=== PATIENT | female | born 1935 | race Native Hawaiian/Other Pacific Islander ===

== ENCOUNTER 2016-02-16 09:39 | Inpatient (IN) | payer OTHER ==
[~2016-02-16 09:39] MED LIST: ALPR0.2566 PO; AMBIEN5 MG PO; AMLO5TAB PO; EZET10TA13 PO; LEVO0.1224 PO; METO50TA27 PO; MOBIC7.5 M1 PO; NAMENDA5 MG PO; OMEPRAZOLE20 M2 PO; PAROXETINE30 MG PO; POTASSIUM CHLO10 ME2 PO; RANI150T78 PO; SIMV40TA57 PO; VALS160T PO
== END 2016-03-18 08:00 | disposition still patient (30) ==
LOC: PAVB 09:39
PROVIDERS: ADMIT Internal Medicine
DX: Z51.89 Encounter for other specified aftercare (principal)

== ENCOUNTER 2016-03-18 09:00 | Inpatient (IN) | payer OTHER | END 2016-04-18 10:18 | disposition still patient (30) | LOC: PAVB 09:00 | PROVIDERS: ADMIT Internal Medicine | DX: Z51.89 Encounter for other specified aftercare (principal) ==

== ENCOUNTER 2016-03-22 10:13 | Outpatient (CLI) | payer OTHER | END 2016-03-22 11:13 | disposition home or self-care (01) | LOC: MAMMO 10:13 | DX: Z12.31 Encounter for screening mammogram for malignant neoplasm of breast (principal) | CPT/HCPCS: G0202-TC ==

== ENCOUNTER 2016-04-18 10:49 | Inpatient (IN) | payer OTHER | END 2016-05-16 09:48 | disposition still patient (30) | LOC: PAVB 10:49 | PROVIDERS: ADMIT Internal Medicine | DX: Z51.89 Encounter for other specified aftercare (principal) ==

== ENCOUNTER 2016-05-16 11:02 | Inpatient (IN) | payer OTHER | END 2016-06-16 08:08 | disposition still patient (30) | LOC: PAVB 11:02 | PROVIDERS: ADMIT Internal Medicine | DX: Z51.89 Encounter for other specified aftercare (principal) ==

== ENCOUNTER 2016-05-30 21:10 | Outpatient (CLI) | payer OTHER ==
[2016-05-30 22:17] LABS: PLATELET COUNT 170 K/uL (152-353)
[2016-05-30 22:20] LABS: POTASSIUM 4.7 mmol/L (3.6-5.2)
== END 2016-05-30 22:00 | disposition home or self-care (01) ==
LOC: LAB 21:10
PROVIDERS: Internal Medicine
DX: R41.82 Altered mental status, unspecified (principal)
CPT/HCPCS: 80048; 81000; 85027; 87077; 87086; 87088; 87186

== ENCOUNTER 2016-06-16 09:34 | Inpatient (IN) | payer OTHER | END 2016-07-16 09:14 | disposition still patient (30) | LOC: PAVB 09:34 | PROVIDERS: ADMIT Internal Medicine | DX: Z51.89 Encounter for other specified aftercare (principal) ==

== ENCOUNTER 2016-06-20 06:16 | Outpatient (CLI) | payer OTHER ==
[2016-06-20 07:03] LABS: PLATELET COUNT 124 K/uL (152-353)
[2016-06-20 07:29] LABS: POTASSIUM 4.3 mmol/L (3.6-5.2)
== END 2016-06-20 07:16 | disposition home or self-care (01) ==
LOC: LAB 06:16
PROVIDERS: Internal Medicine
DX: I10 Essential (primary) hypertension (principal); E78.4 Other hyperlipidemia; E55.9 Vitamin D deficiency, unspecified
CPT/HCPCS: 80053; 82306; 84443; 85027

== ENCOUNTER 2016-07-04 05:28 | Outpatient (CLI) | payer OTHER | END 2016-07-04 19:02 | disposition home or self-care (01) | LOC: LAB 05:28 | DX: Z16.24 Resistance to multiple antibiotics (principal) | CPT/HCPCS: 87081 ==

== ENCOUNTER 2016-07-16 10:13 | Inpatient (IN) | payer OTHER | END 2016-08-16 09:37 | disposition still patient (30) | LOC: PAVB 10:13 | PROVIDERS: ADMIT Internal Medicine | DX: Z51.89 Encounter for other specified aftercare (principal) ==

== ENCOUNTER 2016-07-31 03:35 | Outpatient (CLI) | payer OTHER | END 2016-07-31 19:42 | disposition home or self-care (01) | LOC: LAB 03:35 | DX: N39.0 Urinary tract infection, site not specified (principal) | CPT/HCPCS: 81000 ==

== ENCOUNTER 2016-08-16 10:06 | Inpatient (IN) | payer OTHER | END 2016-09-15 15:23 | disposition still patient (30) | LOC: PAVB 10:06 | PROVIDERS: ADMIT Internal Medicine | DX: Z51.89 Encounter for other specified aftercare (principal) ==

== ENCOUNTER 2016-09-15 15:48 | Inpatient (IN) | payer OTHER | END 2016-10-16 09:45 | disposition still patient (30) | LOC: PAVB 15:48 | PROVIDERS: ADMIT Internal Medicine | DX: Z51.89 Encounter for other specified aftercare (principal) ==

== ENCOUNTER 2016-10-16 11:05 | Inpatient (IN) | payer OTHER | END 2016-11-16 08:43 | disposition still patient (30) | LOC: PAVB 11:05 | PROVIDERS: ADMIT Internal Medicine | DX: Z51.89 Encounter for other specified aftercare (principal) ==

== ENCOUNTER 2016-10-17 14:00 | Outpatient (CLI) | payer OTHER | END 2016-10-17 19:37 | disposition home or self-care (01) | LOC: LAB 14:00 | DX: L03.818 Cellulitis of other sites (principal) | CPT/HCPCS: 87070; 87205 ==

== ENCOUNTER 2016-11-16 09:22 | Inpatient (IN) | payer OTHER | END 2016-12-16 10:41 | disposition still patient (30) | LOC: PAVB 09:22 | PROVIDERS: ADMIT Internal Medicine | DX: Z51.89 Encounter for other specified aftercare (principal) ==

== ENCOUNTER 2016-12-09 18:03 | Outpatient (CLI) | payer OTHER | END 2016-12-09 19:05 | disposition home or self-care (01) | LOC: LAB 18:03 | DX: R35.0 Frequency of micturition (principal) | CPT/HCPCS: 81000 ==

== ENCOUNTER 2016-12-16 10:49 | Inpatient (IN) | payer OTHER | END 2017-01-16 12:58 | disposition still patient (30) | LOC: PAVB 10:49 | PROVIDERS: ADMIT Internal Medicine ==

== ENCOUNTER 2016-12-18 06:53 | Outpatient (CLI) | payer OTHER ==
[2016-12-18 07:55] LABS: PLATELET COUNT 147 K/uL (152-353)
[2016-12-18 08:40] LABS: POTASSIUM 4.4 mmol/L (3.6-5.2)
== END 2016-12-18 07:55 | disposition home or self-care (01) ==
LOC: LAB 06:53
PROVIDERS: Internal Medicine
DX: I10 Essential (primary) hypertension (principal); E55.9 Vitamin D deficiency, unspecified
CPT/HCPCS: 36415; 80053; 80061; 82306; 84443; 85027

== ENCOUNTER 2017-01-16 13:59 | Inpatient (IN) | payer OTHER | END 2017-02-15 09:21 | disposition still patient (30) | LOC: PAVB 13:59 | PROVIDERS: ADMIT Internal Medicine ==

== ENCOUNTER 2017-01-18 06:02 | Outpatient (CLI) | payer OTHER | END 2017-01-18 07:05 | disposition home or self-care (01) | LOC: LAB 06:02 | DX: E03.8 Other specified hypothyroidism (principal); Z51.81 Encounter for therapeutic drug level monitoring | CPT/HCPCS: 84443 ==

== ENCOUNTER 2017-02-15 09:49 | Inpatient (IN) | payer OTHER ==
[2017-03-01] MEDS ORDERED: ALEN70TA19 PO (19:57)
[2017-03-01] MEDS ORDERED: CETI10TA PO (19:58)
[2017-03-01] MEDS ORDERED: BISA10SU8 RE (19:58)
[2017-03-01] MEDS ORDERED: CLOBETASOL0.051 EX (20:03)
[2017-03-01] MEDS ORDERED: DIVA500T2 PO (20:04)
[2017-03-01] MEDS ORDERED: EQ STOOL SOFTE100 MG PO (20:06)
[2017-03-01] MEDS ORDERED: EZET10TA13 OR (20:07)
[2017-03-01] MEDS ORDERED: ASPI325T40 PO (20:07)
[2017-03-01] MEDS ORDERED: FLONASE AL50 MCG/AC1 (20:08)
[2017-03-01] MEDS ORDERED: GABA100C2 PO (20:10)
[2017-03-01] MEDS ORDERED: GABA300C2 PO (20:11)
[2017-03-01] MEDS ORDERED: LEVO-T88 MCG PO (20:12)
[2017-03-01] MEDS ORDERED: ALUMSUS6 PO (20:20)
[2017-03-01] MEDS ORDERED: METO50TA27 PO (20:22)
[2017-03-01] MEDS ORDERED: MAGNSUS68 PO (20:30)
[2017-03-01] MEDS ORDERED: MONT10TA PO (20:31)
[2017-03-01] MEDS ORDERED: PRILOSEC DR (20:32)
[2017-03-01] MEDS ORDERED: KLOR-CON M2020 MEQ OR (20:33)
[2017-03-01] MEDS ORDERED: ROBITUSSIN DM PO (20:36)
[2017-03-01] MEDS ORDERED: SENNA PLUS (20:37)
[2017-03-01] MEDS ORDERED: TYLENOL325 MG OR (20:38)
[2017-03-01] MEDS ORDERED: DIOVAN320 MG PO (20:39)
[2017-03-01] MEDS ORDERED: VITAMIN D PO (20:41)
== END 2017-03-18 09:32 | disposition still patient (30) ==
LOC: PAVB 09:49
PROVIDERS: ADMIT Internal Medicine

== ENCOUNTER 2017-02-17 11:16 | Outpatient (CLI) | payer OTHER | END 2017-02-17 12:20 | disposition home or self-care (01) | LOC: LAB 11:16 | DX: R82.99 Other abnormal findings in urine (principal) | CPT/HCPCS: 81000; 87077; 87086; 87088; 87186 ==

== ENCOUNTER 2017-02-18 06:12 | Outpatient (CLI) | payer OTHER | END 2017-02-18 07:15 | disposition home or self-care (01) | LOC: LAB 06:12 | DX: E03.8 Other specified hypothyroidism (principal) | CPT/HCPCS: 36415; 84443 ==

== ENCOUNTER 2017-03-18 10:25 | Inpatient (IN) | payer OTHER ==
[~2017-03-18 10:25] MED LIST changes: +ALEN70TA19 PO; +ALUMSUS6 PO; +ASPI325T40 PO; +BISA10SU8 RE; +CETI10TA PO; +CLOBETASOL0.051 EX; +DIOVAN320 MG PO; +DIVA500T2 PO; +EQ STOOL SOFTE100 MG PO; +EZET10TA13 OR; +FLONASE AL50 MCG/AC1; +GABA100C2 PO; +GABA300C2 PO; +KLOR-CON M2020 MEQ OR; +LEVO-T88 MCG PO; +MAGNSUS68 PO; +MONT10TA PO; +PRILOSEC DR; +ROBITUSSIN DM PO; +SENNA PLUS; +TYLENOL325 MG OR; +VITAMIN D PO
== END 2017-04-18 09:56 | disposition still patient (30) ==
LOC: PAVB 10:25
PROVIDERS: ADMIT Internal Medicine

== ENCOUNTER 2017-03-31 20:19 | Outpatient (CLI) | payer OTHER | END 2017-03-31 23:13 | disposition home or self-care (01) | LOC: LAB 20:19 | DX: R50.9 Fever, unspecified (principal) | CPT/HCPCS: 87804 ==

== ENCOUNTER 2017-04-05 10:36 | Outpatient (CLI) | payer OTHER | END 2017-04-05 19:29 | disposition home or self-care (01) | LOC: LAB 10:36 | DX: R41.82 Altered mental status, unspecified (principal); R50.9 Fever, unspecified | CPT/HCPCS: 87804 ==

== ENCOUNTER → 2017-04-10 03:50 | Outpatient (CLI) | payer OTHER ==
[~2017-04-10 03:50] MED LIST changes: +CALCIUM CARBON600 M3 PO; +CULTURELL3; +MEGACE ES PO; +ROBITUSSIN PEAK COL3 OR
== END | disposition home or self-care (01) ==
LOC: LAB 03:50
DX: R41.82 Altered mental status, unspecified (principal)
CPT/HCPCS: 81000; 87077; 87086; 87088; 87186

== ENCOUNTER 2017-04-18 10:46 | Inpatient (IN) | payer OTHER ==
[~2017-04-18 10:46] MED LIST changes: -CALCIUM CARBON600 M3 PO; -CULTURELL3; -MEGACE ES PO; -ROBITUSSIN PEAK COL3 OR
[2017-05-06] MEDS ORDERED: CULTURELL3 (10:41)
[2017-05-06] MEDS ORDERED: EZET10TA13 OR (10:43)
[2017-05-06] MEDS ORDERED: ROBITUSSIN PEAK COL3 OR (10:48)
[2017-05-14] MEDS ORDERED: CALCIUM CARBON600 M3 PO (03:02)
[2017-05-14] MEDS ORDERED: MEGACE ES PO (03:24)
== END 2017-05-16 09:20 | disposition still patient (30) ==
LOC: PAVB 10:46
PROVIDERS: ADMIT Internal Medicine
DX: J18.9 Pneumonia, unspecified organism (principal); R53.1 Weakness; R26.89 Other abnormalities of gait and mobility; R13.12 Dysphagia, oropharyngeal phase; J30.9 Allergic rhinitis, unspecified; G20 Parkinson's disease; M51.34 Other intervertebral disc degeneration, thoracic region; E55.9 Vitamin D deficiency, unspecified; M89.9 Disorder of bone, unspecified; Z95.0 Presence of cardiac pacemaker

== ENCOUNTER 2017-05-05 16:31 | Inpatient (IN) | payer OTHER ==
[~2017-05-05] VITALS: Ht 162.6 cm; Wt 61.3 kg
[2017-05-05 16:41] LABS: PLATELET COUNT 202 K/uL (152-353)
[2017-05-05 17:06] LABS: POTASSIUM 4.9 mmol/L (3.6-5.2)
[2017-05-06 01:42] VITALS: BP 138/75; TEMP 97.4; Ht 162.6 cm; Wt 61.3 kg
[2017-05-06 04:00] VITALS: BP 159/74; TEMP 97.4
--- NOTE | 2017-05-06 05:27 | NUR ---
PT'S DAUGHTER HAS BEEN AT BED SIDE ALL NIGHT. PT DOES NOT APPEAR TO BE IN DIRE DISTRESS. PT SEEMS TO BE MORE ALERT THAN SHE WAS WHEN SHE CAME IN LAST NIGHT. WILL CONTINUE TO MONITOR PT FOR ANY CHANGES. BEDRAILS UP X2 CALL LIGHT WITHIN REACH.
[2017-05-06 08:37] VITALS: BP 186/61; TEMP 97.5
[2017-05-06] MEDS ORDERED: CULTURELL3 (10:41)
[2017-05-06] MEDS ORDERED: EZET10TA13 OR (10:43)
[2017-05-06] MEDS ORDERED: ROBITUSSIN PEAK COL3 OR (10:48)
[2017-05-06 12:00] VITALS: BP 165/63; TEMP 97
[2017-05-06 16:00] VITALS: BP 151/67; TEMP 97.9
[2017-05-06 20:00] VITALS: BP 152/61; TEMP 97.6
[2017-05-07] VITALS: BP 156/61; TEMP 98.2
[2017-05-07 04:00] VITALS: BP 158/59; TEMP 98.1
[2017-05-07 08:00] VITALS: BP 185/74; TEMP 97.8
[2017-05-07 12:29] VITALS: BP 129/62; TEMP 97.6
[2017-05-07 16:00] VITALS: BP 153/63; TEMP 97.1
[2017-05-07 20:00] VITALS: BP 195/71; TEMP 98.2
[2017-05-08] VITALS: BP 170/78; TEMP 97.6
[2017-05-08 04:00] VITALS: BP 138/60; TEMP 98.5
[2017-05-08 06:11] LABS: PLATELET COUNT 178 K/uL (152-353)
[2017-05-08 06:30] LABS: POTASSIUM 3.5 mmol/L (3.6-5.2)
[2017-05-08 08:00] VITALS: BP 147/72; TEMP 97.6
[2017-05-08 12:00] VITALS: BP 145/70; TEMP 96.5
[2017-05-08 16:00] VITALS: BP 129/67; TEMP 97.4
[2017-05-08 20:00] VITALS: BP 116/80; TEMP 97.9
[2017-05-09] VITALS: BP 140/65; TEMP 98.2
[2017-05-09 04:00] VITALS: BP 145/89; TEMP 98.1
[2017-05-09 08:00] VITALS: BP 153/89; TEMP 97.9
[2017-05-09 12:00] VITALS: BP 95/65; TEMP 98
--- NOTE | 2017-05-09 15:24 | NUR ---
IV D/C'D. PT TRANSFERRED FROM BED TO W/C AND WHEELED BACK TO [facility] AT THIS TIME. DAUGHTER SIGNED D/C PAPER WORK AND ALL ORDERS GIVEN TO NURSE MAYELA ON [facility]. NO PROBLEMS NOTED.
== END 2017-05-09 15:00 | DRG 193 ==
LOC: RAD 16:31 → MED/SURG 20:44
PROVIDERS: ADMIT Internal Medicine
DX: J18.8 Other pneumonia, unspecified organism (principal); J96.01 Acute respiratory failure with hypoxia; J44.0 Chronic obstructive pulmonary disease with (acute) lower respiratory infection; G30.8 Other Alzheimer's disease; F02.80 Dementia in other diseases classified elsewhere, unspecified severity, without behavioral disturbance, psychotic disturbance, mood disturbance, and anxiety; I10 Essential (primary) hypertension; E03.8 Other specified hypothyroidism; I25.10 Atherosclerotic heart disease of native coronary artery without angina pectoris
CPT/HCPCS: 36415; 80053; 80202; 83880; 85027; 94640; 94664; 94760; J1940; J2060; J2543; J3370; J7120

== ENCOUNTER 2017-05-13 11:01 | Inpatient (IN) | payer OTHER ==
[~2017-05-13] VITALS: Ht 162.6 cm; Wt 64.0 kg
[2017-05-13] VITALS (12 sets, daily range): BP systolic 132–156; BP diastolic 32–78; TEMP 98–98.1; Ht 162.6 cm; Wt 64.0 kg
[~2017-05-13 11:01] MED LIST changes: +CULTURELL3; +ROBITUSSIN PEAK COL3 OR
[2017-05-13 18:51] LABS: PLATELET COUNT 281 K/uL (152-353)
[2017-05-13 20:10] LABS: POTASSIUM 5.3 mmol/L (3.6-5.2)
[2017-05-14] VITALS (26 sets, daily range): BP systolic 132–186; BP diastolic 60–98; TEMP 97.1–98.6
[2017-05-14] MEDS ORDERED: CALCIUM CARBON600 M3 PO (03:02)
[2017-05-14] MEDS ORDERED: MEGACE ES PO (03:24)
[2017-05-14 05:31] LABS: PLATELET COUNT 243 K/uL (152-353)
[2017-05-14 05:44] LABS: POTASSIUM 4.7 mmol/L (3.6-5.2)
[2017-05-15] VITALS (26 sets, daily range): BP systolic 133–766; BP diastolic 59–124; TEMP 98–98.5
[2017-05-15 06:28] LABS: PLATELET COUNT 236 K/uL (152-353)
[2017-05-15 06:48] LABS: POTASSIUM 4.2 mmol/L (3.6-5.2)
[2017-05-16] VITALS (27 sets, daily range): BP systolic 122–199; BP diastolic 61–105; TEMP 97.7–98.4
[2017-05-17] VITALS (23 sets, daily range): BP systolic 122–183; BP diastolic 57–101; TEMP 97.7–98.8
[2017-05-17 07:59] LABS: PLATELET COUNT 263 K/uL (152-353)
[2017-05-17 08:02] LABS: POTASSIUM 3.5 mmol/L (3.6-5.2)
[2017-05-18] VITALS (14 sets, daily range): BP systolic 140–190; BP diastolic 59–96; TEMP 97.6–98.1
[2017-05-18 06:37] LABS: PLATELET COUNT 214 K/uL (152-353)
[2017-05-18 06:41] LABS: POTASSIUM 3.7 mmol/L (3.6-5.2)
[2017-05-19] VITALS (20 sets, daily range): BP systolic 68–184; BP diastolic 23–92; TEMP 97.1–98
[2017-05-20] VITALS (14 sets, daily range): BP systolic 97–187; BP diastolic 62–101; TEMP 97.3–98.9
[2017-05-20 06:40] LABS: PLATELET COUNT 231 K/uL (152-353)
[2017-05-20 06:59] LABS: POTASSIUM 3.2 mmol/L (3.6-5.2)
== END 2017-05-20 14:09 | DRG 166 ==
LOC: RAD 11:01 → ICU 17:23
PROVIDERS: ADMIT Internal Medicine
PROC: 0BCB8ZZ Extirpation of Matter from Left Lower Lobe Bronchus, Via Natural or Artificial Opening Endoscopic (ICD-10-PCS; principal; 2017-05-14)
PROC: 0B9J8ZX Drainage of Left Lower Lung Lobe, Via Natural or Artificial Opening Endoscopic, Diagnostic (ICD-10-PCS; 2017-05-14)
PROC: 0W9B30Z Drainage of Left Pleural Cavity with Drainage Device, Percutaneous Approach (ICD-10-PCS; 2017-05-17)
DX: J96.00 Acute respiratory failure, unspecified whether with hypoxia or hypercapnia (principal); J18.8 Other pneumonia, unspecified organism; J44.0 Chronic obstructive pulmonary disease with (acute) lower respiratory infection; N39.0 Urinary tract infection, site not specified; M62.82 Rhabdomyolysis; J90 Pleural effusion, not elsewhere classified; F02.80 Dementia in other diseases classified elsewhere, unspecified severity, without behavioral disturbance, psychotic disturbance, mood disturbance, and anxiety; G30.8 Other Alzheimer's disease; E03.8 Other specified hypothyroidism; J98.09 Other diseases of bronchus, not elsewhere classified; I70.208 Unspecified atherosclerosis of native arteries of extremities, other extremity; I10 Essential (primary) hypertension; I25.10 Atherosclerotic heart disease of native coronary artery without angina pectoris; R91.8 Other nonspecific abnormal finding of lung field; I95.89 Other hypotension; E87.6 Hypokalemia; E83.42 Hypomagnesemia
CPT/HCPCS: 36415; 51702; 80048; 80053; 80202; 81000; 82945; 82962; 83615; 83986; 85027; 87070; 87077; 87101; 87205; 89050; 93005; 94640; 94664; 94668; 94760; 96367; J1450; J2001; J2704; J3490; J7060

== ENCOUNTER 2017-05-16 10:10 | Inpatient (IN) | payer OTHER ==
[~2017-05-16 10:10] MED LIST changes: +CALCIUM CARBON600 M3 PO; +MEGACE ES PO
== END 2017-06-02 14:00 | disposition expired ==
LOC: PAVB 10:10
PROVIDERS: ADMIT Internal Medicine
DX: J18.9 Pneumonia, unspecified organism (principal); J96.00 Acute respiratory failure, unspecified whether with hypoxia or hypercapnia; R26.89 Other abnormalities of gait and mobility; R13.12 Dysphagia, oropharyngeal phase; J44.0 Chronic obstructive pulmonary disease with (acute) lower respiratory infection; M62.82 Rhabdomyolysis; R53.1 Weakness; G20 Parkinson's disease; E55.9 Vitamin D deficiency, unspecified